=== PATIENT | female | born 1985 | race Caucasian/White ===

== ENCOUNTER 2025-04-01 15:10 | Outpatient (REF) | payer MEDICAID, SELFPAY ==
--- OUTSIDE RECORDS SUMMARY | 2025-04-01 14:00 | XMS_ITS | Encounter Summary ---
Author Organization [employer] Address [address] [place] [address] Care Team Providers Care Sap Portal Architect Name Role Phone Isatu Bose MD Primary Care Provide r Reason for Referral * Consultation (Routine) - Authorized Specialty Diagnoses / Procedures Referred By Tequila wei Referred To Contact Behavioral Health Diagnoses Anxiety Procedures Referral to Behavioral Health Isatu Bose MD [address] [place] [phone] Phone: tel: fax: Referral ID Status Reason Start Date Expiration Date Visits Requested Visits Authorized [id number] Authorized Specialty Services Required 04/01/2026 1 1 * Imaging (Routine) - Authorized Specialty Diagnoses / Procedures Referred By Tequila wei Referred To Contact Radiology Diagnoses Encounter for screening mammogram for malignant neoplasm of breast Procedures BI Mammogram Screening Tomosynthesis Bilateral Isatu Bose MD [address] [place] [address] Phone: tel: fax: [address] [phone] Phone: tel: fax: Referral ID Status Reason Start Date Expiration Date V isits Requested Visits Authorized [id number] Authorized 04/01/2025 04/01/2026 1 1 * Consultation (Routine) - Authorized Specialty Diagnoses / Procedures Referred By Tequila t Referred To Contact Obstetrics and Gynecology Diagnoses Irregular periods/menstrual cycles Isatu Bose MD [address] [place] [address] Phone: tel: fax: [facility] [address] [place] [phone] Phone: tel: fax: Referral ID Status Reason Start Date Expiration Date Visits Requested Visits Authorized [id number] Authorized Specialty Services Required 04/01/2026 1 1 Scheduling Instructions Please refer patient to Daisy Morales or 7 sisters (patient live in [place]) thank you Encounter Details Date Type Department Care Team (Late st Contact Info) Description 04/01/2025 2:00 PM EST Office Visit [facility] MEDICINE [address] [place] [phone] Isatu Bose MD [address] [place] [phone] Nasal polyps (Primary Dx); Irregular periods/menstrual cycles; Encounter for screening mammogram for malignant neoplasm of breast; Anxiety; Class 2 obesity due to excess calories without serious comorbidity with body mass index (BMI) of 37.0 to 37.9 in adult; Seborrheic dermatitis; Encounter for immunization Social History Tobacco Use Types Packs/Day Years Used Date Smoking Tobacco: Every Day Cigarettes Tobacco Cessation:Ready to Q uit: Not Asked; Counseling Given: Not Answered Depression Answer Date Recorded Patient Health Questionnaire-9 Score 5 04/01/2025 Patient Health Questionnaire-9 Score 5 04/01/2025 Last PHQ-9: Questionnaire Data Not on file 1 06/01/2024 Housing Stability Answer Date Recorded What is your housing situation today? I have young simons 04/01/[address] you li ve. Do you have problems with any of the following? None of the above 04/01/2025 Food Insecurity Answer Date Recorded Within the past 12 months, y ou worried that your food would run out before you got money to buy more: Never True 2024 Within the past 12 months,th e food you bought just didn't last and you didn't have enough money to get more: Sometimes True 04/01/2025 Transportation Answer Date Recorded In the past 12 months, has l ack of transportation kept you from medical appts, meetings, work or from getting things needed for daily living? Yes, it has kept me from non-medical meetings, work, or getting things that I need 04/01/2025 Utilities Answer Date Recorded In the past 12 months, has t he [email or web address], gas, oil or water [employer] threatened to shut off services in your home? Yes 03/25/2025 Depression Answer Date Recorded Patient Health Questionnaire-2 Score 1 04/01/2025 Internet Access Answer Date Recorded Internet Access Q1 Yes 03/25/2025 Internet Access Q2 Not on file 03/25/2025 Comments Unknown Sex and Gender Information Value Date Recorded Sex Assigned at Female 03/08/2022 10:18 AM EDT Legal Sex Female 10:18 AM EDT Gender Identity Choose not to disclose 10:18 AM EDT Sexual Orientation Choose not to disclose 2021 10:18 AM EDT documented as of this encounter Last Filed Vital Signs Vital Sign Reading Time Taken Comments Blood Pressure 120/78 04/01/2025 2:26 PM EST Pulse 80 04/01/2025 2:26 PM EST Temperature 33.4 C (92.2 F) 04/01/2025 2:26 PM EST Respiratory Rate 17 04/01/2025 2:26 PM EST Oxygen Saturation 97% 04/01/2025 2:26 PM EST Inhaled Oxygen Concentration - - Weight 95.5 kg (210 lb 9.6 oz) 04/01/2025 2:26 P M EST Height 160 cm (5' 3 ) 04/01/2025 2:26 PM EST Body Mass Index 37.31 04/01/2025 2:26 PM EST documented in this encounter Functional Status * Over the past 2 weeks, how often have you been bothered by any of the following problems? Question Answer Date of Assessment Author Patient Health Questionnaire-2 Score 1 03/10 2:29 PM EST Sheri Powell MA * Little interest or pleasure in doing things Answer Date of Assessment Author Several days 04/01/2025 2:29 PM Yaron Awad ra, [place] * Feeling down, depressed, or hopeless Answer Date of Assessment Author Not at all 04/01/2025 2:29 PM Yaron Awad ra, [place] * Trouble falling or staying asleep, or sleeping too much Answer Date of Assessment Author Nearly every day 04/01/2025 2:29 PM Megan Awad MA * Feeling tired or having little energy Answer Date of Assessment Author Several days 04/01/2025 2:29 PM Yaron Awad ra, [place] * Poor appetite or overeating Answer Date of Assessment Author Not at all 04/01/2025 2:29 PM Yaron Awad ra, [place] * Feeling bad about yourself - or that you are a failure or have let yourself or your family down Answer Date of Assessment Author Not at all 04/01/2025 2:29 PM Yaron Awad ra, [place] * Trouble concentrating on things, such as reading the newspaper or watching television Answer Date of Assessment Author Not at all 04/01/2025 2:29 PM Yaron Awad ra, [place] * Moving or speaking so slowly that other people could have noticed? Or the opposite - being so fidgety or restless that you have been moving around a lot more than usual. Answer Date of Assessment Author Not at all 04/01/2025 2:29 PM Yaron Awad ra, [place] * Thoughts that you would be better off or hurting yourself in some way Answer Date of Assessment Author Not at all 04/01/2025 2:29 PM Yaron Awad ra, [place] * Patient Health Questionnaire-9 Score Answer Date of Assessment Author 5 04/01/2025 2:29 PM Yaron Awad ra, [place] * Over the last 2 weeks, how often have you been bothered by any of the following problems? Question Answer Date of Assessment Author Feeling nervous, anxious, or on edge 0 03/10 2:29 PM Sheri Awad MA Not being able to stop or co ntrol worrying 0 04/01/2025 2:29 PM Sheri Awad MA Worrying too much about diff erent things 1 04/01/2025 2:29 PM Sheri Awad MA Trouble relaxing 0 04/01/2025 2:29 PM EST Marcelo watsonSheri cantu MA Being so restless that it is hard to sit still 0 04/01/2025 2:29 PM Sheri Awad MA Becoming easily annoyed or irritable 1 03/10 2:29 PM Sheri Awad MA Feeling afraid as if somethi ng awful might happen 0 04/01/2025 2:29 PM Sheri Awad MA ROBIN-7 Total Score 2 04/01/2025 2:29 PM Sheri Awad MA * How difficult have these problems made it for you to do your work, take care of things at home, or get along with other people? Answer Date of Assessment Author Not difficult at all 04/01/2025 2:29 PM Sheri Lockhart MA documented as of this encounter Progress Notes * Isatu Kumar MD - 04/01/2025 2:00 PM EST SUBJECTIVE: Gloria Abbott is a 39 y.o. year old adult who presents for New patient . 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 HENT: Negative. Respiratory: Negative. Cardiovascular: Negative. Psychiatric/Behavioral: The patient is nervous/anxious. OBJECTIVE: Vitals: 04/01/25 1426 BP: 120/78 BP Location: Left arm Patient Position: Sitting BP Cuff Size: Adult Pulse: 80 Resp: 17 Temp: 92.2 ??F (33.4 ??C) TempSrc: Temporal SpO2: 97% Weight: 210 lb 9.6 oz (95.5 kg) Height: 5' 3 (1.6 m) Physical Exam Constitutional: Appearance: Normal appearance. Cardiovascular: Rate and Rhythm: Regular rhythm. Pulmonary: Effort: Pulmonary effort is normal. Breath sounds: Normal breath sounds. Abdominal: General: Abdomen is flat. Palpations: Abdomen is soft. Musculoskeletal: Right lower leg: No edema. Left lower leg: No edema. Neurological: Mental Status: Gloria is alert. Follow Up: Follow up for next available PAP smear . Medications Ordered Prior to Encounter[3] Problem List Items Addressed This Visit Irregular periods/menstrual cycles Relevant Orders Referral to Obstetrics / Gynecology Encounter for screening mammogram for malignant neoplasm of breast Relevant Orders BI Mammogram Screening Tomosynthesis Bilateral Anxiety Relevant Medications hydrOXYzine HCl (Atarax) 25 MG tablet escitalopram (Lexapro) 10 MG tablet Other Relevant Orders Referral to Behavioral Health Class 2 obesity due to excess calories without serious comorbidity with body mass index (BMI) of 37.0 to 37.9 in adult Relevant Orders CBC auto differential Comprehensive Metabolic Panel Hemoglobin A1c HIV-1/2 Antigen and Antibodies, Fourth Generation, with Reflexes Hepatitis C Antibody with Reflex to HCV, RNA, Quantitative, Real-Time PCR Lipid Panel, Standard Vitamin D, 25-Hydroxy, Total, Immunoassay TSH with Reflex to Free T4 Seborrheic dermatitis Relevant Medications ketoconazole (NIZOral) 2 % shampoo Nasal polyps - Primary Relevant Medications hydrOXYzine HCl (Atarax) 25 MG tablet Other Visit Diagnoses Encounter for immunization Relevant Orders FLU VACCINE TRIVALENT [id number] (Fluarix) 19 yrs + (Completed) COVID-19 VACCINE [id number] (Comirnaty) 19 yrs + (Completed) Irregular periods/menstrual cycles: - Irregular menstrual cycles noted, with recent menses starting on March 26, 2025, and history of amenorrhea for almost one year. - Referral to lithograph operator for evaluation of irregular periods. Scheduled Pap smear to be performedprior to gynecology appointment. Encounter for screening mammogram for malignant neoplasm of breast: - Ordered screening mammogram. Anxiety: - Anxiety with panic attacks, increased difficulty controlling symptoms, and recent crying spells. No suicidal ideation. - Prescribed hydroxyzine to be taken as needed every 8 hours or at bedtime. Prescribed [id number] mg daily for anxiety. Referral to therapist for counseling. Scheduled follow-up phone appointment to monitor response to medication. - Risks and side effects: Discussed possible drowsiness and sleepiness with hydroxyzine and escitalopram. Class 2 obesity due to excess calories without serious comorbidity with body mass index (BMI) of 37.0 to 37.9 in adult: - Class 2 obesity with BMI of 37.0 to 37.9. - Ordered blood work to assess anemia, kidney function, glucose, HIV, hepatitis, lipid panel, vitamin D, and thyroid function. Advised on healthy eating, exercise, and hydration. Seborrheic dermatitis: - Seborrheic dermatitis with pruritus and scalp involvement. - Prescribed medicated shampoo to be used twice weekly. Provided refills for shampoo. Nasal polyps: - Nasal polyps previously diagnosed, with history of chronic nasal obstruction and recommendation for ENT evaluation and possible CAT scan. - Will place referral to ENT for evaluation and management of nasal polyps. Will coordinate referral location after patient provides preferred facility information. This note was drafted using [employer] ([employer]) technology. The patient/patient's guardian has been informed and has consented to the use of this technology: Yes [1] Patient Active Problem List Diagnosis Irregular periods/menstrual cycles Encounter for screening mammogram for malignant neoplasm of breast Anxiety Class 2 obesity due to excess calories without serious comorbidity with body mass index (BMI) of 37.0 to 37.9 in adult Seborrheic dermatitis Nasal polyps [2] No family history on file. [3] No current outpatient medications on file prior to visit. No current facility-administered medications on file prior to visit. documented in this encounter Plan of Treatment Upcoming Encounters Date Type Department Care Team (Late st Contact Info) Description 05/07/2025 1:45 PM EST Telemedicine [facility]ICINE [address] [place] [address] Isatu Bose MD [address] [place] [address] 08/08/2025 3:00 PM EDT Office Visit [facility] OPTOMETRY [address] [place] [address] Sulma Mcmullen, OD [address] [place] [address] Scheduled Orders Name Type Priority Associated Diagnoses Orde r Schedule BI Mammogram Screening Tomosynthesis Bilateral Imaging Routine Encounter for screening mammogram for malignant neoplasm of breast Expected: 04/01/2025, Expires: 06/01/2026 HIV-1/2 Antigen and Antibodies, Fourth Generation, with Reflexes Lab Routine Class 2 obesity due to excess calories without serious comorbidity with body mass index (BMI) of 37.0 to 37.9 in adult Expected: 04/01/2025 (Approximate), Expires: 04/01/2026 Hepatitis C Antibody with Reflex to HCV, RNA, Quantitative, Real-Time PCR Lab Routine Class 2 obesity due to excess calories without serious comorbidity with body mass index (BMI) of 37.0 to 37.9 in adult Expected: 04/01/2025, Expires: 04/01/2026 Scheduled Referrals Name Type Priority Associated Diagnoses Order Schedule Referral to Obstetrics / Gynecology Outpatient Referral Routine Irregular periods/menstrual cycles Expected: 04/01/2025 (Approximate), Expires: 04/01/2026 documented as of this encounter Procedures Procedure Name Priority Date/Time Associated Diagnosis Comments VITAMIN D,25-OH,TOTAL,IA Routine 04/01/2025 3:16 PM EST Class 2 obesity due to excess calories without serious comorbidity with body mass index (BMI) of 37.0 to 37.9 in adult TSH W/REFLEX TO FT4 Routine 04/01/2025 3 :16 PM EST Class 2 obesity due to excess calories without serious comorbidity with body mass index (BMI) of 37.0 to 37.9 in adult CBC WITH AUTO DIFFERENTIAL Routine 04/01/2025 3:16 PM EST Class 2 obesity due to excess calories without serious comorbidity with body mass index (BMI) of 37.0 to 37.9 in adult HEMOGLOBIN A1C Routine 04/01/2025 3:16 PM EST Class 2 obesity due to excess calories without serious comorbidity with body mass index (BMI) of 37.0 to 37.9 in adult LIPID PANEL, STANDARD Routine 04/01/2025 3:16 PM EST Class 2 obesity due to excess calories without serious comorbidity with body mass index (BMI) of 37.0 to 37.9 in adult COMPREHENSIVE METABOLIC PANEL Routine 04/01/2025 3:16 PM EST Class 2 obesity due to excess calories without serious comorbidity with body mass index (BMI) of 37.0 to 37.9 in adult documented in this encounter Results * TSH with Reflex to Free T4 (04/01/2025 3:16 PM EST) TSH reflex Free T4 1.37 0.32 - 4.0 uIU/mL [facility] Blood Venous blood specimen / Unknown 04/01/2025 3:16 PM EST 04/01/2025 6:21 PM EST us Isatu Kumar MD LAB BLOOD ORDERABLES Final Result [facility] [address] [place] [phone] * Vitamin D, 25-Hydroxy, Total, Immunoassay (04/01/2025 3:16 PM EST) Vitamin D 25-OH Total 41.9 >30 ng/mL [facility] Comment: Health Based Reference Values*< 20 ng/mL Ibeyxdglb75-11 ng/mL Insufficient> 30 ng/mL Sufficient*Romina PARNELL. N Engl J Med. 2007;357:266-280There is no well-established upper level of normal vitamin Dlevels. Some laboratories use 50 ng/mL as an upper limit ofnormal. However, toxicity is patient-dependent and may occurat any level. Careful correlation with the patient'spresentation is necessary and, if there is concern forvitamin D toxicity, treatment should be consideredirrespective of the serum level.Care must be taken in interpreting Vitamin D results fromdifferent laboratories and methodologies. Published datademonstrated that results from patients undergoinghemodialysis may show a negative bias when tested withvarious automated 25-OH vitamin D assays when compared toLC-MS/MS.When testing samples from patients whose predominant form ofVitamin D is Vitamin D2, such as patients receiving VitaminD2 supplementation, results that are subtherapeutic shouldbe confirmed with another method such as LC-MS/MS. Blood Venous blood specimen / Unknown 04/01/2025 3:16 PM EST 04/01/2025 6:21 PM EST Isatu Kumar MD LAB BLOOD ORDERABLES Final Result Performing Organization Address [facility] Co de Phone Number [facility] [address] [place] [phone] * (ABNORMAL) Lipid Panel, Standard (04/01/2025 3:16 PM EST) Triglycerides 140 <150 mg/dL [facility] Comment:Desirable Triglyceri de: less than 150 mg/dLBorderline High Triglyceride 150-199 mg/dLHigh Triglyceride: 200-499 mg/dLVery High Triglyceride: greater than or equal to 5OO mg/dL Cholesterol 196 <200 mg/dL [facility] Comment:Desirable Cholestero l: less than 200 mg/dLBorderline High Cholesterol: 200-239 mg/dLHigh Cholesterol: greater than 239 mg/dL LDL Cholesterol Calculated 127(H) <100 mg/dL [facility] Comment:Desirable LDL: less than 100 mg/dLNear Optimal/Above Optimal LDL: 110- 129 mg/dLBorderline High LDL: 130-159 mg/dLHigh LDL: 160-189 mg/dLVery High LDL: greater than or equal to 190 mg/dL HDL Cholesterol 41 >40 mg/dL [facility] Comment:Desirable HDL: great er than 40 mg/dL Note: This HDL assay may give artificially low results in patients with liver disease. Blood Venous blood specimen / Unknown 04/01/2025 3:16 PM EST 04/01/2025 6:21 PM EST Isatu Kumar MD LAB BLOOD ORDERABLES Final Result Performing Organization Address [facility] Co de Phone Number [facility] [address] [place] [phone] * Hemoglobin A1c (04/01/2025 3:16 PM EST) Hemoglobin A1c 5.1 <6.0 % [facility] Comment:Hemoglobin A1C Refer ence Range Adults: 4.8 - 6.0 % Non diabetic: < 6.0 % Goal: < 7.0 %Additional Action Suggested: > 8.0 %Note: Hemoglobin A1c results are invalid for patients with abnormal amounts of HbF. Blood transfusions may impact the HbA1c concentration in the patient sample. Estimated Average Glucose 100 mg/dL [facility] Comment:eAG = Estimated ave rage glucose which is %A1C expressed asaverage glucose, using the formula of the B6P-[id number] Glucose study (ADAG), Diabetes Care, Vol.31,#8,Dec. 2007 Blood Venous blood specimen / Unknown 04/01/2025 3:16 PM EST 04/01/2025 3:57 PM EST Isatu Kumar MD LAB BLOOD ORDERABLES Final Result [facility] [address] [place] [phone] * (ABNORMAL) Comprehensive Metabolic Panel (04/01/2025 3:16 PM EST) Pathologist [facility] Sodium 140 135 - 145 mmol/L [facility] Potassium 4.0 3.3 - 5.1 mmol/L [facility] Chloride 103 96 - 108 mmol/L [facility] Carbon Dioxide 32(H) 22 - 29 mmol/L [facility] Anion Gap 9(L) 12 - 20 [facility] Urea Nitrogen (BUN) 8(L) 9 - 16 mg/dL [facility] Creatinine, Serum 0.63 0.5 - 1.4 mg/dL [facility] Estimated Glomerular Filt Rate >60 [facility] Comment:Chronic Kidney Disea se: Estimated GFR < 60 mL/min/1.47i7Swxkwi Kidney Disease: Estimated GFR < 15 mL/min/1.73m2 Glucose 80 60 - 115 mg/dL [facility] Calcium 9.2 8.4 - 10.2 mg/dL [facility] Bilirubin, Total 0.3 0.0 - 1.0 mg/dL [facility] Aspartate Amino Transferase 26 5 - 31 U/L [facility] Alanine Aminotransferase 10 0 - 31 U/L [facility] Total Protein 7.6 6.5 - 8.0 g/dL [facility] Albumin Level 4.4 3.5 - 5.0 g/dL [facility] Alkaline Phosphatase 80 39 - 117 U/L [facility] Blood Venous blood specimen / Unknown 04/01/2025 3:16 PM EST 04/01/2025 6:21 PM EST us Isatu Kumar MD LAB BLOOD ORDERABLES Final Result [facility] [address] [place] [phone] * (ABNORMAL) CBC auto differential (04/01/2025 3:16 PM EST) White Blood Count 7.3 4.8 - 10.8 X10*3/uL [facility] Red Blood Count 4.29 4.20 - 5.50 X10*6/uL [facility] Hemoglobin 13.0 12.0 - 16.0 g/dl [facility] Hematocrit 39.6 37.0 - 47.0 % [facility] Mean Corpuscular Volume 92.3 80.0 - 98.0 fL [facility] Mean Corpuscular Hemoglobin 30.3 27.0 - 33.0 pg [facility] Mean Corpuscular HGB Conc 32.8 31.0 - 35.0 g/dl [facility] Red Cell Distribution Width 13.0 11.0 - 16.0 % [facility] Platelet Count 298 160 - 400 X10*3/uL [facility] Mean Platelet Volume 8.4(L) 9.4 - 12.3 fL [facility] Neutrophils Percent Auto 48.0 45 - 73 % [facility] Imm Gran Pct Auto 0.1 0.0 - 0.4 % [facility] Lymphocytes Percent Auto 41.5(H) 20 - 40 % [facility] Monocytes Percent Auto 5.4 2 - 11 % [facility] Eosinophils Percent Auto 4.5(H) 0 - 4 % [facility] Basophils Percent Auto 0.5 0 - 2 % [facility] NRBC Pct Auto 0.0 0.0 - 0.2 /100WBC [facility] Neutrophils Absolute Auto 3.5 2.0 - 8.3 x10*3/uL [facility] Imm Gran Abs Auto 0.01 0.00 - 0.03 X10*3/uL [facility] Lymphocytes Absolute Auto 3.0 1.2 - 4.9 X10*3/uL [facility] Monocytes Absolute Auto 0.4 0.1 - 1.2 X10*3/uL [facility] Eosinophils Absolute Auto 0.3 0.0 - 0.4 X10*3/uL [facility] Basophils Absolute Auto 0.0 0.0 - 0.2 X10*3/uL [facility] NRBC Abs Auto 0.000 0.0 - 0.012 X10*3/uL [facility] Blood Venous blood specimen / Unknown 04/01/2025 3:16 PM EST 04/01/2025 3:57 PM EST Isatu Kumar MD LAB BLOOD ORDERABLES Final Result [facility] [address] [place] [phone] documented in this encounter Visit Diagnoses Diagnosis Nasal polyps- Primary Unspecified nasal polyp Irregular periods/menstrual cycles Encounter for screening mammogram for malignant neoplasm of breast Anxiety Anxiety state, unspecified Class 2 obesity due to excess calories without serious comorbidity with body mass index (BMI) of 37.0 to 37.9 in adult Seborrheic dermatitis Unspecified seborrheic dermatitis Encounter for immunization documented in this encounter Additional Health Concerns Assessment Noted Time PHQ-9 Depression Total Score: 5 04/01/20 2:29 PM EST documented as of this encounter Care Teams Sap Portal Architect Relationship Specialty Start Date End Date Isatu Bose MD [address] [place] [address] PCP - General Internal Medicine 04/01/25 documented as of this encounter
[2025-04-01 16:02] LABS: MANUAL DIFF FLAG NO
[2025-04-01 16:08] LABS: Hematocrit 39.6 % (37.0-47.0); Hemoglobin 13.0 g/dl (12.0-16.0); Imm Gran Abs Auto 0.01 X10*3/uL (0.00-0.03); Imm Gran Pct Auto 0.1 % (0.0-0.4); Lymphocytes Absolute Auto 3.0 X10*3/uL (1.2-4.9); Mean Corpuscular HGB Conc 32.8 g/dl (31.0-35.0); Mean Corpuscular Hemoglobin 30.3 pg (27.0-33.0); Mean Corpuscular Volume 92.3 fL (80.0-98.0); NRBC Abs Auto 0.000 X10*3/uL (0.0-0.012); NRBC Pct Auto 0.0 /100WBC (0.0-0.2); Platelet Count 298 X10*3/uL (160-400); Red Blood Count 4.29 X10*6/uL (4.20-5.50); White Blood Count 7.3 X10*3/uL (4.8-10.8)
[2025-04-01 19:05] LABS: Alanine Aminotransferase 10 U/L (0-31); Albumin Level 4.4 g/dL (3.5-5.0); Alkaline Phosphatase 80 U/L (39-117); Anion Gap 9 (12-20); Aspartate Amino Transferase 26 U/L (5-31); Blood Urea Nitrogen 8 mg/dL (9-16); Calcium 9.2 mg/dL (8.4-10.2); Carbon Dioxide 32 mmol/L (22-29); Chloride 103 mmol/L (96-108); Cholesterol 196 mg/dL (<200); Estimated Glomerular Filt Rate > 60; HDL Cholesterol 41 mg/dL (>40); Potassium 4.0 mmol/L (3.3-5.1); Sodium 140 mmol/L (135-145); Total Protein 7.6 g/dL (6.5-8.0); Triglycerides 140 mg/dL (<150)
--- OUTSIDE RECORDS SUMMARY | 2025-04-01 19:57 | XMS_ITS | Encounter Summary ---
Author Organization [employer] Address [address] [place] [address] Care Team Providers Care Bilingual Teacher Name Role Phone Isatu Bose MD Primary Care Provide r Encounter Details Date Type Department Care Team (Latest Contact Info) Description 04/01/2025 Travel Social History Tobacco Use Types Packs/Day Years Used Date Smoking Tobacco: Every Day Cigarettes Depression Answer Date Recorded Patient Health Questionnaire-9 [...] the past 12 months, has t he electric, gas, oil or water company threatened to shut off services in your [...] AM EDT documented as of this encounter Functional Status * Over the past 2 weeks, how often have you been bothered by any of the following problems? Question Answer Date of Assessment Author Patient Health Questionnaire-2 Score 1 03/10 2:29 PM Sheri Awad MA * Little interest or pleasure in [...] Not at all 04/01/2025 2:29 PM Yaron Awda ra, [place] * Trouble concentrating on things, [...] MA Trouble relaxing 0 04/01/2025 2:29 PM Sheri Garcia MA Being so restless that it is [...] [place] MA documented as of this encounter Plan of Treatment Upcoming Encounters Date Type Department Care Team (Late st Contact Info) Description 05/07/2025 1:45 PM EST Telemedicine [facility]INE [address] [place] [address] Isatu Bose MD [address] [place] [address] 08/08/2025 3:00 PM EDT Office Visit [facility] OPTOMETRY [address] [place] [address] Sulma Mcmullen, OD [address] [place] [address] documented as of this encounter Visit Diagnoses Not on filedocumented in this encounter Additional Health Concerns Assessment Noted Time PHQ-9 Depression Total Score: 5 04/01/20 25 2:29 PM EST documented as of this encounter Care Teams Bilingual Teacher Relationship Specialty Start Date End Date Isatu Bose MD [address] [place] [address] PCP - General Internal Medicine 04/01/25 documented as of this encounter
--- OUTSIDE RECORDS SUMMARY | 2025-04-01 19:57 | XMS_ITS | Encounter Summary ---
Author Organization [employer] Address [address] [place] [address] Care Team Providers Care Loan Analyst Name Role Phone Unavailable Primary Care Provider Unavailabl e Reason for Visit * Reason Onset Date Comments chart prep 03/29/2025 Encounter Details Date Type Department Care Team (Late st Contact Info) Description 03/29/2025 Telephone [facility] [address] [place] [address] Isatu Bose MD [address] [place], [place] [phone] chart prep Social History Tobacco Use Types Packs/Day Years Used Date Smoking Tobacco: Never Assessed Housing Stability Answer Date Recorded What is your housing situation today? I have younglinh simons 03/25/[address] you li ve. Do you have problems with any of the following? Not on file 03/25/2025 Food Insecurity Answer Date Recorded Within the past 12 months, y ou worried that your food would run out before you got money to buy more: Never True 03/25/2025 Within the past 12 months,th e food you bought just didn't last and you didn't have enough money to get more: Never True Transportation Answer Date Recorded In the past 12 months, has l ack of transportation kept you from medical appts, meetings, work or from getting things needed for daily living? No 03/25/2025 Utilities Answer Date Recorded In the past 12 months, has t he electric, gas, oil or water company threatened to shut off services in your home? Yes 03/25/2025 Internet Access Answer Date Recorded Internet Access Q1 Yes 03/25/2025 Internet Access Q2 Not on file 03/25/2025 Comments Unknown Sex and Gender Information Value Date Recorded Sex Assigned at Female 03/08/2022 10:18 AM EDT Legal Sex Female 10:18 AM EDT Gender Identity Choose not to disclose 2 10:18 AM EDT Sexual Orientation Choose not to disclose 2021 10:18 AM EDT documented as of this encounter Miscellaneous Notes * Telephone Encounter - Vince Green MA - 03/29/2025 10:12 AM EST Chart Prep Labs: not applicable Images: not applicable Referrals: not applicable Vaccines due: Covid, Flu, Hep B, HPV, and DTAP Screenings: mammogram and pap smear Overdue care gaps: SDOH, PHQ-9, ROBIN-7, Disability screen, and Tobacco documented in this encounter Plan of Treatment Upcoming Encounters Date Type Department Care Team (Late st Contact Info) Description 05/07/2025 1:45 PM EST Telemedicine [facility] [address] [place] [address] Isatu Bose MD [address] [place] [address] 08/08/2025 3:00 PM EDT Office Visit [facility] OPTOMETRY [address] [place] [address] Sulma Mcmullen, NOHELIA [address] [place] [address] documented as of this encounter Visit Diagnoses Not on filedocumented in this encounter
--- OUTSIDE RECORDS SUMMARY | 2025-04-01 19:57 | XMS_ITS | Clinical Summary ---
Author Organization [employer] Address [address] [place] [address] Care Team Providers Care Steamboat Inspector Name Role Phone Isatu Bose MD Primary Care Provide r Allergies No known active allergies Medications hydrOXYzine HCl (Atarax) 25 MG tabletIndicatio ns:Anxiety Take 1 tablet (25 mg) by mouth every 8 (eight) hours if needed for itching. 30 tablet 1 5 05/01/20 25 Active escitalopram (Lexapro) 10 MG tabletIndicatio ns:Anxiety Take 1 tablet (10 mg) by mouth Once per day. 30 tablet 2 5 06/30/19 26 Active ketoconazole (NIZOral) 2 % shampooIndicati ons:Seborrheic dermatitis Apply topically 2 (two) times a week. 120 mL 2 5 Active Active Problems Problem Noted Date Diagnosed Date Irregular periods/menstrual cycles 04/01/2025 Encounter for screening mamm ogram for malignant neoplasm of breast 04/01/2025 Anxiety 04/01/2025 Class 2 obesity due to exces s calories without serious comorbidity with body mass index (BMI) of 37.0 to 37.9 in adult 04/01/2025 Seborrheic dermatitis 04/01/2025 Nasal polyps 04/01/2025 Encounters Date Type Department Care Team Description 04/01/2025 2:00 PM EST Office Visit [facility] [address] [place], [place] [phone] Isatu Bose MD Nasal polyps (Primary Dx); Irregular periods/menstrual cycles; Encounter for screening mammogram for malignant neoplasm of breast; Anxiety; Class 2 obesity due to excess calories without serious comorbidity with body mass index (BMI) of 37.0 to 37.9 in adult; Seborrheic dermatitis; Encounter for immunization 04/01/2025 Travel 03/29/[address] [address] Isatu Bose MD chart prep 03/25/2025 Patient Outreach [address] [phone] Isatu Bose MD Care Coordination (CHW outreach for SDOH housing search-LVM ) 03/25/2025 Patient Outreach [address] [phone] Isatu Bose MD Pre-visit Planning 01/22/[address] [address] Sheri Powell MA r/s from 01/28 provider out 01/18/2025 Patient Outreach [address] [phone] Isatu Bose MD Pre-visit Planning ((Unable to reach for PVP screening, LVM) to be completed in office ) from Last 3 Months Immunizations Immunization Administration Dates Next Due Influenza injectable quadrivalent preservative f ree 03/11/2023 Influenza, seasonal, injectable, preservative fr ee 04/01/2025 Pfizer Covid-19 Vaccine 12+ 04/01/2025 Social History Tobacco Use Types Packs/Day Years [...] not to disclose 2021 10:18 AM EDT Last Filed Vital Signs Vital Sign Reading [...] Mass Index 37.31 04/01/2025 2:26 PM EST Plan of Treatment Upcoming Encounters Date Type Department Care Team (Late st Contact Info) Description 05/07/2025 1:45 PM EST Telemedicine [facility] [address] [place] [address] Isatu Bose MD [address] [place], [place] [phone] 08/08/2025 3:00 PM EDT Office Visit [facility] OPTOMETRY [address] [place] [address] Sumla Mcmullen, OD [address] [place] [address] Health Maintenance Due Date Last Done Comments HIV Screening 1984 Lipid Panel 1984 04/01/2025 Disability Screening 1984 Alcohol/Substance Use Screening 1996 Family Planning (PISQ) 07/29/1999 HPV Vaccines (1 - 3-dose series) 07/29/1999 Hepatitis C Screening 2002 DTaP/Tdap/Td Vaccines (1 - Tdap) 07/29/2003 Hepatitis B Vaccines (1 of 3 - 19+ 3-dose series) 07/29/2003 Pneumococcal Vaccine: Pediatrics (0 to 5 Years) and At-Risk Patients (6 to 49) Years (1 of 2 - PCV) 07/29/2003 Pap Smear 2005 Cervical Cancer Screening 2014 HPV/Cotest 2014 Mammogram 2024 Depression Screening 04/01/2026 04/01/2025, 04/01/2025 SDOH Screening 04/01/2026 04/01/2025 Tobacco Screening 04/01/2026 04/01/2025 Zoster Vaccines (1 of 2) 2034 RSV Patients and Patients Aged 60 years or older (1 - 1-dose 75+ series) 07/29/2059 COVID-19 Vaccine Completed 04/01/2025, 03/11/2023 Influenza Vaccine Completed 04/01/2025, 03/11/2023 HIB Vaccines Aged Out No longer eligi ble based on patient's age to complete this topic Hepatitis A Vaccines Aged Out No long er eligible based on patient's age to complete this topic IPV Vaccines Aged Out No longer eligi ble based on patient's age to complete this topic Meningococcal B Vaccine Aged Out No l onger eligible based on patient's age to complete this topic Meningococcal Vaccine Aged Out No claudia heidi eligible based on patient's age to complete this topic RSV under 20 months Aged Out No longe r eligible based on patient's age to complete this topic Rotavirus Vaccines Aged Out No longer eligible based on patient's age to complete this topic Procedures Procedure Name Priority Date/Time Associated Diagnosis Comments TSH W/REFLEX TO FT4 Routine 04/01/2025 3 :16 PM EST Class 2 obesity due to excess calories without serious comorbidity with body mass index (BMI) of 37.0 to 37.9 in adult VITAMIN D,25-OH,TOTAL,IA Routine 04/01/2025 3:16 PM EST [...] (BMI) of 37.0 to 37.9 in adult from Last 3 Months Results * Vitamin D, 25-Hydroxy, Total, Immunoassay (04/01/2025 3:16 PM EST) Vitamin D 25-OH Total 41.9 >30 ng/mL [facility] Comment: Health Based Reference Values*< 20 ng/mL [id number] ng/mL Insufficient> 30 ng/mL Sufficient*Romina PARNELL. N [...] BLOOD ORDERABLES Final Result Performing Organization Address [facility]/ZIP Co de Phone Number [facility] [address] [place] [phone] * TSH with Reflex to Free T4 (04/01/2025 3:16 PM EST) Pathologist [facility] TSH reflex Free T4 1.37 0.32 - 4.0 uIU/mL [facility] Blood Venous blood specimen / Unknown 04/01/2025 3:16 PM EST 04/01/2025 6:21 PM EST us Isatu Kumar MD LAB BLOOD ORDERABLES Final Result Performing Organization Address [facility]/ZIP Co de Phone Number [facility] [address] [place] [phone] * (ABNORMAL) CBC auto differential (04/01/2025 3:16 PM EST) White Blood Count 7.3 4.8 - 10.8 X10*3/uL [facility] Red Blood Count 4.29 4.20 - 5.50 X10*6/uL [facility] Hemoglobin 13.0 12.0 - 16.0 g/dl [facility] Hematocrit 39.6 37.0 - 47.0 % [facility] Mean Corpuscular Volume 92.3 80.0 - 98.0 fL [facility] Mean Corpuscular Hemoglobin 30.3 27.0 - 33.0 pg [facility] Mean Corpuscular HGB Conc 32.8 31.0 - 35.0 g/dl [facility] Red Cell Distribution Width 13.0 11.0 - 16.0 % [facility] Platelet Count 298 160 - 400 X10*3/uL [facility] Mean Platelet Volume 8.4(L) 9.4 - 12.3 fL [facility] Neutrophils Percent Auto 48.0 45 - 73 % [facility] Imm Gran Pct Auto 0.1 0.0 - 0.4 % [facility] Lymphocytes Percent Auto 41.5(H) 20 - 40 % [facility] Monocytes Percent Auto 5.4 2 - 11 % [facility] Eosinophils Percent Auto 4.5(H) 0 - 4 % [facility] Basophils Percent Auto 0.5 0 - 2 % [facility] NRBC Pct Auto 0.0 0.0 - 0.2 /100WBC [facility] Neutrophils Absolute Auto 3.5 2.0 - 8.3 x10*3/uL [facility] Imm Gran Abs Auto 0.01 0.00 - 0.03 X10*3/uL [facility] Lymphocytes Absolute Auto 3.0 1.2 - 4.9 X10*3/uL [facility] Monocytes Absolute Auto 0.4 0.1 - 1.2 X10*3/uL [facility] Eosinophils Absolute Auto 0.3 0.0 - 0.4 X10*3/uL [facility] Basophils Absolute Auto 0.0 0.0 - 0.2 X10*3/uL [facility] NRBC Abs Auto 0.000 0.0 - 0.012 X10*3/uL [facility] Blood Venous blood specimen / Unknown 04/01/2025 3:16 PM EST 04/01/2025 3:57 PM EST Isatu Kumar MD LAB BLOOD ORDERABLES Final Result Performing Organization Address [facility] Co de Phone Number [facility] [address] [place] [phone] * Hemoglobin A1c (04/01/2025 3:16 PM EST) Hemoglobin A1c 5.1 <6.0 % [facility] Comment:Hemoglobin A1C Refer ence Range Adults: 4.8 - 6.0 % Non diabetic: < 6.0 % Goal: < 7.0 %Additional Action Suggested: > 8.0 %Note: Hemoglobin A1c results are invalid for patients with abnormal amounts of HbF. Blood transfusions may impact the HbA1c concentration in the patient sample. Estimated Average Glucose 100 mg/dL [facility] Comment:eAG = Estimated ave rage glucose which is %A1C expressed asaverage glucose, using the formula of the [id number] Glucose study (ADAG), Diabetes Care, Vol.31,#8,Dec. 2007 Blood Venous blood specimen / Unknown 04/01/2025 3:16 PM EST 04/01/2025 3:57 PM EST us Isatu Kumar MD LAB BLOOD ORDERABLES Final Result Performing Organization Address [facility] Co de Phone Number [facility] [address] [place] [phone] * (ABNORMAL) Lipid Panel, Standard (04/01/2025 3:16 PM EST) Triglycerides 140 <150 mg/dL [facility] Comment:Desirable Triglyceri de: less than 150 mg/dLBorderline High Triglyceride 150-199 mg/dLHigh Triglyceride: 200-499 mg/dLVery High Triglyceride: greater than or equal to 5OO mg/dL Cholesterol 196 <200 mg/dL [facility] Comment:Desirable Cholestero l: less than 200 mg/dLBorderline High Cholesterol: 200-239 mg/dLHigh Cholesterol: greater than 239 mg/dL LDL Cholesterol Calculated 127(H) <100 mg/dL [facility] Comment:Desirable LDL: less than 100 mg/dLNear Optimal/Above Optimal LDL: 110- 129 mg/dLBorderline High LDL: 130-159 mg/dLHigh LDL: 160-189 mg/dLVery High LDL: greater than or equal to 190 mg/dL HDL Cholesterol 41 >40 mg/dL [facility] Comment:Desirable HDL: great er than 40 mg/dL Note: This HDL assay may give artificially low results in patients with liver disease. Blood Venous blood specimen / Unknown 04/01/2025 3:16 PM EST 04/01/2025 6:21 PM EST us Isatu Kumar MD LAB BLOOD ORDERABLES Final Result [facility] [address] [place] [phone] * (ABNORMAL) Comprehensive Metabolic Panel (04/01/2025 3:16 PM EST) Sodium 140 135 - 145 mmol/L [facility] Potassium 4.0 3.3 - 5.1 mmol/L [facility] Chloride 103 96 - 108 mmol/L [facility] Carbon Dioxide 32(H) 22 - 29 mmol/L [facility] Anion Gap 9(L) 12 - 20 [facility] Urea Nitrogen (BUN) 8(L) 9 - 16 mg/dL [facility] Creatinine, Serum 0.63 0.5 - 1.4 mg/dL [facility] Estimated Glomerular Filt Rate >60 [facility] Comment:Chronic Kidney Disea se: Estimated GFR < 60 mL/min/[id number] Kidney Disease: Estimated GFR < 15 mL/min/1.73m2 Glucose 80 60 - 115 mg/dL [facility] Calcium 9.2 8.4 - 10.2 mg/dL [facility] Bilirubin, Total 0.3 0.0 - 1.0 mg/dL [facility] Aspartate Amino Transferase 26 5 - 31 U/L [facility] Alanine Aminotransferase 10 0 - 31 U/L [facility] Total Protein 7.6 6.5 - 8.0 g/dL [facility] Albumin Level 4.4 3.5 - 5.0 g/dL [facility] Alkaline Phosphatase 80 39 - 117 U/L [facility] Blood Venous blood specimen / Unknown 04/01/2025 3:16 PM EST 04/01/2025 6:21 PM EST us Isatu Kumar MD LAB BLOOD ORDERABLES Final Result [facility] [address] [place] [phone] from Last 3 [place] [id number] [facility] [place] [id number] Care Teams Steamboat Inspector Relationship Specialty Start Date End Date Isatu Bose MD [address] [facility] [place] [id number] PCP - General Internal Medicine 04/01/25
[2025-04-02 04:45] LABS: HIV Num 1 0.07 S/CO (0.00-0.99); ~HepC Num1 0.13 S/CO (0.00-0.79); ~Hepatitis C Antibody Nonreactive (Nonreactive)
== END 2025-04-01 15:11 | disposition home or self-care (01) ==
LOC: HO.HHCL 15:10
PROVIDERS: PCP Internal Medicine; Visit Provider Internal Medicine
DX: E66.812 Obesity, class 2 (principal); Z68.37 Body mass index [BMI] 37.0-37.9, adult; Z11.4 Encounter for screening for human immunodeficiency virus [HIV]; Z11.59 Encounter for screening for other viral diseases
CPT/HCPCS: 36415; 80053; 80061; 82306; 83036; 84443; 85025; 86803; 87389